=== PATIENT | female | born 1945 | race Caucasian/White ===

== ENCOUNTER 2016-10-23 09:20 | Inpatient (IN) | payer MEDICARE, MEDICAID ==
[2016-10-23] VITALS (15 sets, daily range): BP systolic 65–150; BP diastolic 31–72; PULSE 60–101; RESP 15–20; TEMP 97.7–98.1; O2SAT 89–98
[2016-10-23] MEDS ORDERED: LISI-515 PO (09:34)
[2016-10-23] MEDS ORDERED: ASPI81CH CHEW (09:34)
[2016-10-23] MEDS ORDERED: FOLI1TAB6 PO (09:34)
[2016-10-23] MEDS ORDERED: CALC0.25 PO (09:34)
[2016-10-23] MEDS ORDERED: CARV25TA PO (09:34)
[2016-10-23] MEDS ORDERED: FURO20TA PO (09:34)
[2016-10-23] MEDS ORDERED: FERR325T8 PO (09:34)
[2016-10-23] MEDS ORDERED: SPIRCAP INH (09:34)
[2016-10-23] MEDS ORDERED: LORA-373 PO (09:34)
[2016-10-23] MEDS ORDERED: AMLO5TAB2 PO (09:34)
[2016-10-23] MEDS ORDERED: ATOR40TA16 PO (09:34)
[2016-10-23] MEDS ORDERED: ISOS60TA PO (09:34)
[2016-10-23] MEDS ORDERED: VITA10002 PO (09:34)
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
[2016-10-23] MEDS: RESP: ALBUTEROL 2.5 MG/IPRATROPIUM 0.5 MG NEB (SCH) INH ×3 (09:43→22:26)
[2016-10-23] MEDS ORDERED: methylPREDNISolone SOD SUCC 125 MG/2 ML VIAL IVP ONE (09:45)
[2016-10-23] MEDS ORDERED: SODIUM CHLORIDE 0.9% FLUSH 10 ML FLUSH IVF PRN ×2 (09:45→14:15)
[2016-10-23] MEDS ORDERED: SODIUM CHLORID 0.9% 500 ML INJ 500 ML IV ONE (09:45)
[2016-10-23 09:47] LABS: HEMATOCRIT 28.4 % (35.0-46.0); MEAN CELL VOLUME 98.2 FL (80.0-100.0); MEAN CORPUSCULAR HEMOGLOBIN 31.3 PG (27.0-34.0); MEAN CORPUSCULAR HGB CONC 31.9 % (32.0-36.0); PLATELET COUNT 120 TH/MM3 (150-450); RED BLOOD COUNT 2.89 MIL/MM3 (4.00-5.30); RED CELL DISTRIBUTION WIDTH 17.4 % (11.6-17.2); WHITE BLOOD COUNT 5.8 TH/MM3 (4.0-11.0)
[2016-10-23 09:59] LABS: HEMO FLAGS AUTO DIFF
--- NOTE | 2016-10-23 10:12 | RADRPT ---
EXAM DATE/TIME: 10/23/2016 09:52 [facility] COMPARISON: No previous studies available for comparison. INDICATIONS : Short of breath. MEDICAL HISTORY : Hypertension. Chronic obstructive pulmonary disease. Arthritis. SURGICAL HISTORY : Hysterectomy. ENCOUNTER: Initial ACUITY: 2 weeks PAIN SCORE: 0/10 LOCATION: chest FINDINGS: A single view of the chest demonstrates right middle lobe airspace disease characteristic of atelecta sis. Left lung is clear. Heart is mildly enlarged. Osseous structures are intact. CONCLUSION: Right middle lobe airspace disease characteristic of atelectasis. Mild cardiomegaly. Elbert Lee MD on October 23, 2016 at 10:10 Board Certified Radiologist. This report was verified electronically.
[2016-10-23 10:21] LABS: EOSINOPHILS 1 % (0-4); NEUTROPHIL # MANUAL DIFF 3.5 TH/MM3 (1.8-7.7); PLATELET ESTIMATE SMEAR LOW (NORMAL); PLATELET MORPHOLOGY NORMAL (NORMAL); POLYS (SEG NEUTROPHILS) 61 % (16-70); SCAN/DIFF FINAL DIFF MANUAL; WBC DIFF SAMPLE 100
[2016-10-23 11:07] LABS: GLOMERULAR FILTRATION RATE 11 ML/MIN (>89)
[2016-10-23 11:08] LABS: ALKALINE PHOSPHATASE 931 U/L (45-117); AST (GOT) 193 U/L (15-37); MAGNESIUM 2.5 MG/DL (1.5-2.5)
[2016-10-23 11:09] LABS: ALT (GPT) 102 U/L (10-53); ANION GAP 13 MEQ/L (5-15); CHLORIDE 105 MEQ/L (98-107); SODIUM (NA) 140 MEQ/L (136-145); TOTAL BILIRUBIN ADULT 1.3 MG/DL (0.2-1.0)
[2016-10-23 11:10] LABS: BLOOD UREA NITROGEN 91 MG/DL (7-18)
[2016-10-23 11:13] LABS: CREATINE KINASE 47 U/L (26-192)
[2016-10-23] MEDS ORDERED: SODIUM POLYSTYRENE SULFONATE SUSP 15 GM/60 ML CUP PO ONE ×3 (11:15→23:30)
[2016-10-23] MEDS ORDERED: CALCIUM GLUCONATE 10% 1 GM/10 ML VIAL SLOW IVP ONE (11:15)
[2016-10-23] MEDS ORDERED: SODIUM CHLOR 0.9% 1000 ML INJ 1,000 ML IV ONE (11:15)
[2016-10-23] MEDS ORDERED: DEXTROSE 50% IN WATER 50 ML VIAL(D50) IV PUSH ONE ×2 (11:15→17:00)
[2016-10-23] MEDS ORDERED: SODIUM BICARBONATE 8.4% SOLN 50 MEQ/50 ML VIAL SLOW IVP ONE (11:15)
[2016-10-23] MEDS ORDERED: INSULIN HUMAN REGULAR 1,000 UNITS/10 ML VIAL IV PUSH ONE ×2 (11:30→17:00)
[2016-10-23] MEDS ORDERED: SENNOSIDES 8.6 MG TAB PO PRN (12:00)
[2016-10-23] MEDS ORDERED: BISACODYL 10 MG SUPP RECTAL PRN (12:00)
[2016-10-23] MEDS ORDERED: LACTULOSE SYRUP 20 GM/30 ML CUP PO PRN (12:00)
[2016-10-23] MEDS ORDERED: MAGNESIUM HYDROXIDE SUSP 30 ML CUP PO PRN (12:00)
[2016-10-23] MEDS: SODIUM BICARBONATE 8.4% INJ 150 MEQ in SODIUM CHLOR 0.9% 1000 ML INJ 850 ML IV SCH ×2 (12:00→16:50)
[2016-10-23] MEDS ORDERED: SODIUM CHLORIDE 0.9% FLUSH 10 ML FLUSH IV FLUSH PRN ×2 (12:00→18:15)
[2016-10-23] MEDS ORDERED: CHLORHEXIDINE GLUCONATE 2 % 1 PACK (2 CLOTHS) TOP PRN (12:00)
[2016-10-23] MEDS ORDERED: MISCELLANEOUS NURSING INFORMATION XX SCH (12:00)
[2016-10-23] MEDS ORDERED: ACETAMINOPHEN 325 MG TAB PO PRN ×2 (12:00→18:15)
[2016-10-23] MEDS ORDERED: ONDANSETRON HCL 4 MG/2 ML VIAL IV PUSH PRN (12:00)
[2016-10-23] MEDS ORDERED: RESP: ALBUTEROL 2.5 MG/IPRATROPIUM 0.5 MG NEB (PRN) INH (12:00)
[2016-10-23] MEDS ORDERED: LIDOCAINE HCL 1% PF 2 ML VIAL ONE (12:02)
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
--- NOTE | 2016-10-23 13:35 | PD.PROCEDR ---
Procedure Note Procedure Procedure: Arterial Line Placement Right radial Diagnosis: COPD exacerbation Indications: Hypoxia, multiple lab draws Consent: Obtained from patient Description of the Procedure: The right wrist was prepped and draped sterilely. 1% lidocaine was used for local anesthesia. The pulse was located and a needle was advanced into the artery. A 20 gauge, 1.34 cm catheter was advanced into the artery using a modified Seldinger technique. The catheter was sutured to the skin and a sterile dressing was applied. The catheter was connected to a pressure transducer and an arterial waveform was noted. There were no immediate complications noted. There was minimal EBL. I personally performed the procedure. Darlene Sinclair MD Oct 23, 2016 13:35
--- NOTE | 2016-10-23 14:03 | PD.RAD ---
Post Procedure Progress Note Pre Procedure Diagnosis: (1) Acute renal failure Post Procedure Diagnosis: (1) Acute renal failure Procedure Date: Oct 23, 2016 Supervising Radiologist: Yuval Villanueva JR Proceduralist/Assist: RT Thiago(R)() Anesthesia: Local Plan of Activity Patient to Unit: Nursing Unit Patient Condition: Good See PACS Report for procedural detail/treatment Central Venous Access Device Procedure 1 Right Internal Jugular Hemodialysis Catheter Non-Tunneled Placement dual lumen Taiwanese: 14 Findings: Placed RIJ Vascath. CXR pending. Flushes well. Jr. Rich,Yuval Wong MD Oct 23, 2016 14:03
--- NOTE | 2016-10-23 14:12 | RADRPT ---
EXAM DATE/TIME: 10/23/2016 14:07 [facility] COMPARISON: CHEST SINGLE AP, October 23, 2016, 9:52. INDICATIONS : Post central line placement; vascath placement. MEDICAL HISTORY : Hypertension. Chronic obstructive pulmonary disease. Arthritis SURGICAL HISTORY : Hysterectomy. ENCOUNTER: Subsequent ACUITY: 1 day PAIN SCORE: 0/10 LOCATION: Bilateral chest FINDINGS: Dialysis catheter in good position without pneumothorax. Minimal bibasilar clinical changes are note d with elevation right hemidiaphragm. The heart is minimally enlarged. The pulmonary vascularity is normal. CONCLUSION: Line in good position, negative for pneumothorax. Terence Ochoa MD FACR on October 23, 2016 at 14:10 Board Certified Radiologist. This report was verified electronically.
[2016-10-23] MEDS ORDERED: HEPARIN SODIUM - IV 2,000 UNITS/2 ML VIAL IV FLUSH PRN (14:15)
[2016-10-23] MEDS: HEPARIN SODIUM - SQ 10,000 UNITS/ML VIAL SQ SCH (14:27)
[2016-10-23] MEDS: NYSTATIN 100,000 U/GM PWD 15 GM BTL TOPICAL SCH (15:02)
--- NOTE | 2016-10-23 15:23 | RADRPT ---
EXAM DATE/TIME: 10/23/2016 00:00 [facility] COMPARISON: No previous studies available for comparison. INDICATIONS : Patient with a history of renal failure, needs dialysis MEDICAL HISTORY : COPD HTN Arthritis Renal disease SURGICAL HISTORY : Hysterectomy ENCOUNTER: Initial ACUITY: 2 days PAIN SCORE: 3/10 IMAGE SERIES: ACCESS: Right internal jugular vein DEVICE(S): 1.) 14 Japanese dual lumen 15 cm Schon catheter PROCEDURE : 1. Ultrasound guided venipuncture. 2. Central line placement. The risks, benefits and alternatives to the procedure were explained and verbal and written consent w as obtained. The site was prepped in sterile fashion. Full sterile technique was used, including ca p, mask, sterile gloves and gown and a large sterile sheet. Hand hygiene and 2% chlorhexidine prep w as utilized per protocol for cutaneous antisepsis with appropriate dry time for site. Sterile gel an d sterile probe cover were utilized for ultrasound guidance. The skin and subcutaneous tissues were infiltrated with local anesthetic solution. A suitable site a bridgette the vein was selected with ultrasound. A small incision was made. The vein was accessed under direct ultrasound visualization using the micropuncture technique. The micropuncture set was exchang ed for a 0.035 wire. The tract was dilated. The catheter was advanced into position. The catheter was fixed in place with suture and a sterile dressing was applied. The patient tolerated the procedure well and there were no complications. Chest x-ray is pending. CONCLUSION: Uncomplicated line placement as above. Yuval Villanueva Jr., MD on October 23, 2016 at 15:21 Board Certified Radiologist. This report was verified electronically.
[2016-10-23] MEDS ORDERED: CALCIUM CHLORIDE INJ 1 GM in DEXTROSE 5% IN WATER 100ML INJ 100 ML IV ONE ×2 (17:00)
[2016-10-23] MEDS ORDERED: SODIUM CHLOR 0.9% 1000 ML INJ 1,000 ML OTHER PRN ×2 (18:06)
[2016-10-23] MEDS ORDERED: SODIUM CHLOR 0.9% 1000 ML INJ 1,000 ML IV PRN (18:06)
[2016-10-23] MEDS ORDERED: cloNIDine HCL 0.1 MG TAB PO PRN (18:15)
[2016-10-23] MEDS ORDERED: NITROGLYCERIN 0.4 MG SL 25 TABS/BTL SL PRN (18:15)
[2016-10-23] MEDS ORDERED: MANNITOL 12.5 GM/50 ML VIAL IV PRN (18:15)
[2016-10-23] MEDS ORDERED: HEPARIN SODIUM - IV 10,000 UNITS/10 ML VIAL PRN (18:15)
[2016-10-23] MEDS ORDERED: ALBUMIN HUMAN 25% 25 GM/100 ML BAGP IV PRN (18:15)
[2016-10-23] MEDS ORDERED: GENTAMICIN SULFATE (DIALYSIS USE ONLY) 20 MG/2 ML VIAL IV PRN (18:15)
[2016-10-23] MEDS ORDERED: diphenhydrAMINE HCL 25 MG CAP PO PRN (18:15)
[2016-10-23] MEDS ORDERED: HEPARIN SODIUM - IV 10,000 UNITS/10 ML VIAL IVF PRN (18:15)
[2016-10-23] MEDS ORDERED: GELATIN 12 MM/7 MM FOAM TOP PRN (18:15)
[2016-10-23] MEDS ORDERED: ONDANSETRON HCL 4 MG/2 ML VIAL IV PRN (18:15)
[2016-10-23 18:21] LABS: POTASSIUM 6.3 MEQ/L (3.5-5.1)
[2016-10-23 18:27] LABS: BLOOD, URINE NEG (NEG); GLUCOSE,URINE NEG (NEG); KETONE, URINE NEG (NEG); NITRITE,URINE NEG (NEG)
[2016-10-23 18:54] LABS: MUCUS URINE MOD /lpf (OCC); URINE COLOR AMBER (YELLW/STRAW)
[2016-10-23 18:55] LABS: SQUAMOUS EPITHELIAL CELL URINE 0-5 /hpf (0-5)
[2016-10-23 18:56] LABS: COMMENT (UR) CULT NOT INDICATED; CULTURE IF INDICATED CULT NOT INDICATED
[2016-10-23] MEDS: DOCUSATE SODIUM 50 MG/SENNA 8.6 MG TAB PO SCH (21:00)
[2016-10-23] MEDS ORDERED: SODIUM BICARBONATE 8.4% INJ 50 MEQ/50 ML SYR IV ONE (23:30)
[2016-10-24] VITALS (31 sets, daily range): BP systolic 106–158; BP diastolic 46–112; PULSE 60–122; RESP 17–33; TEMP 97.9–99.2; O2SAT 86–97
[2016-10-24] MEDS: FAMOTIDINE 20 MG TAB PO SCH ×3 (00:02→20:19)
[2016-10-24] MEDS: NYSTATIN 100,000 U/GM PWD 15 GM BTL TOPICAL SCH ×3 (00:02→20:20)
[2016-10-24] MEDS: SODIUM CHLORIDE 0.9% FLUSH 10 ML FLUSH IV FLUSH SCH ×3 (00:03→20:18)
[2016-10-24] MEDS: RESP: ALBUTEROL 2.5 MG/IPRATROPIUM 0.5 MG NEB (SCH) INH ×4 (03:39→20:44)
[2016-10-24] MEDS ORDERED: LORazepam 0.5 MG TAB PO PRN (03:45)
[2016-10-24] MEDS: SODIUM BICARBONATE 8.4% INJ 150 MEQ in SODIUM CHLOR 0.9% 1000 ML INJ 850 ML IV SCH ×3 (03:51→23:48)
[2016-10-24] MEDS: CHLORHEXIDINE GLUCONATE 2 % 1 PACK (2 CLOTHS) TOP SCH (03:52)
[2016-10-24 07:50] LABS: BICARBONATE 31.1 MEQ/L (21.0-32.0)
[2016-10-24 08:27] LABS: TOTAL PROTEIN SPE 5.1 GM/DL (6.0-7.6)
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
[2016-10-24] MEDS: DOCUSATE SODIUM 50 MG/SENNA 8.6 MG TAB PO SCH ×2 (10:33→20:19)
[2016-10-24] MEDS: CYANOCOBALAMIN 1,000 MCG TAB PO SCH (10:33)
[2016-10-24] MEDS: CALCITRIOL 0.25 MCG CAP PO SCH (10:34)
[2016-10-24] MEDS: ASPIRIN 81 MG CHEW TAB CHEW SCH (10:34)
[2016-10-24] MEDS: CARVEDILOL 12.5 MG TAB PO SCH ×2 (10:35→20:19)
[2016-10-24] MEDS: FOLIC ACID 1 MG TAB PO SCH (10:35)
[2016-10-24] MEDS: amLODIPine BESYLATE 5 MG TAB PO SCH (10:35)
[2016-10-24] MEDS: FUROSEMIDE 20 MG TAB PO SCH (10:35)
[2016-10-24] MEDS: TIOTROPIUM BROMIDE 18 MCG INH INH SCH (10:36)
--- NOTE | 2016-10-24 11:23 | RADRPT ---
EXAM DATE/TIME: 10/24/2016 10:28 [facility] COMPARISON: No previous studies available for comparison. INDICATIONS : Increased BUN/creatnine. MEDICAL HISTORY : Hypertension. Arthritis. COPD. Renal failure. Hyperkalemia. Dyspnea. Morbidly obese. SURGICAL HISTORY : Hysterectomy. ENCOUNTER: Initial ACUITY: 1 day PAIN SCORE: 7/10 LOCATION: Bilateral flank MEASUREMENTS: RIGHT KIDNEY: 9.3 x 3.8 x 4.3 cm LEFT KIDNEY: 9.1 x 3.7 x 4.2 cm FINDINGS: The exam was limited due to the patient's body habitus. RIGHT KIDNEY: Renal cortex is normal in thickness and echotexture. No hydronephrosis, stone, or mass. LEFT KIDNEY: Renal cortex is normal in thickness and echotexture. No hydronephrosis, stone, or mass. BLADDER: Within normal limits given the degree of distension. There is a Cuevas catheter within the bladder. CONCLUSION: 1. Negative examination. Jimbo Ochoa MD on October 24, 2016 at 11:20 Board Certified Radiologist. This report was verified electronically.
--- NOTE | 2016-10-24 11:30 | ECHRPT ---
Indication: CONCLUSIONS Normal left ventricular size. Mild concentric left ventricular hypertrophy. The left ventricular systolic function is low normal with an estimated ejection fraction in the rang e of 50- 55%. The left atrial size is mildly dilated. The right atrial size is mildly dilated. The interatrial septum not well visualized. The aortic root and proximal ascending aorta are not well visualized. There is trace tricuspid valve regurgitation. There is estimated moderate pulmonary hypertension present (range 50-60 mmHg). The pulmonary valve is not well visualized. The inferior vena cava was not well visualized. BP: 64 / 41 HR: 60 Rhythm: Sinus MEASUREMENTS (Male / Female) Normal Values Technical Quality:Poor 2D ECHO LV Diastolic Diameter PLAX 5.2 cm 4.2 - 5.9 / 3.9 - 5.3 cm LV Systolic Diameter PLAX 4.0 cm IVS Diastolic Thickness 1.2 cm 0.6 - 1.0 / 0.6 - 0.9 cm LVPW Diastolic Thickness 1.2 cm 0.6 - 1.0 / 0.6 - 0.9 cm LV Relative Wall Thickness 0.5 LVOT Diameter 2.3 cm Aortic Root Diameter 3.1 cm LA Systolic Diameter LX 3.4 cm 3.0 - 4.0 / 2.7 - 3.8 cm M-MODE AV Cusp Separation MM 2.1 cm DOPPLER AV Peak Velocity 199.0 cm/s AV Peak Gradient 15.8 mmHg AV Mean Gradient 8.0 mmHg AV Velocity Time Integral 42.3 cm LVOT Peak Velocity 117.0 cm/s LVOT Peak Gradient 5.5 mmHg LVOT Velocity Time Integral 27.1 cm AV Area Cont Eq vti 2.7 cm AV Area Cont Eq pk 2.4 cm Mitral E Point Velocity 123.0 cm/s Mitral A Point Velocity 105.0 cm/s Mitral E to A Ratio 1.2 LV E' Lateral Velocity 10.4 cm/s Mitral E to LV E' Lateral Ratio 11.8 LV E' Septal Velocity 11.5 cm/s Mitral E to LV E' Septal Ratio 10.7 TR Peak Velocity 320.0 cm/s TR Peak Gradient 41.0 mmHg PV Peak Velocity 66.9 cm/s PV Peak Gradient 1.8 mmHg FINDINGS LEFT VENTRICLE Normal left ventricular size. Mild concentric left ventricular hypertrophy. The left ventricular systolic function is low normal with an estimated ejection fraction in the rang e of 50- 55%. Left ventricular diastolic function parameters are normal. RIGHT VENTRICLE Normal right ventricular size and systolic function. LEFT ATRIUM The left atrial size is mildly dilated. RIGHT ATRIUM The right atrial size is mildly dilated. ATRIAL SEPTUM The interatrial septum not well visualized. AORTA The aortic root and proximal ascending aorta are not well visualized. MITRAL VALVE Structurally normal mitral valve. No mitral valve stenosis or regurgitation. AORTIC VALVE No aortic valve stenosis or regurgitation. TRICUSPID VALVE Structurally normal tricuspid valve. There is trace tricuspid valve regurgitation. There is estimated moderate pulmonary hypertension present (range 50-60 mmHg). PULMONARY VALVE The pulmonary valve is not well visualized. VESSELS The inferior vena cava was not well visualized. Josh Wilkins MD, FACC, FRCP Edited by: [employer] CV Neuroscientist (Electronically Signed) Final Date:23 October 2016 14:28 Amended: 24 October 2016 11:29
[2016-10-24] MEDS: ISOSORBIDE MONONITRATE 60 MG TAB PO SCH (12:56)
[2016-10-24] MEDS: HEPARIN SODIUM - SQ 10,000 UNITS/ML VIAL SQ SCH ×2 (12:57)
--- NOTE | 2016-10-24 13:29 | PD.WCN.NOT ---
Wound Consult Description: Received consult for pre-existing gluteal/ sacral ulcers from Doctor Darlene Sinclair Communicated with: EVANS Jordan 5th floor [facility] [place] and Doctor Darlene Sinclair Recommendation: Please cleanse two R buttock stage 3 pressure injury wounds with normal saline or wound cleanser. Apply single layer Xeroform dressing just over wound beds. Apply cavilon skin prep spray to periwound and before applying bordered gauze dressing. Change dressing daily or as needed for saturation of dislodgement. Please spray skin prep to areas of diffuse partial thickness skin loss on bilateral buttocks and leave open to air Additional Information: Patient seen earlier on 5th floor [facility] [place]. Assisted patient with moderate assistance to L side for wound assessment. Two wounds noted to R buttock with mixed etiology of moisture and pressure are seen. Proximal R buttock wound presents full thickness, with oval shape and defined wound margins. Wound bed presents with ~50% pink tissue and 50% adipose tissue. Drainage from wound bed is scant and and sero-sanguinous without odor. Periwound is noted with blanchable erythema and scattered diffuse areas of moisture related partial thickness skin loss.Wound measures ~2cm x ~2cm x~0.2cm. Wound to distal R buttock presents as full thickness wound with an elliptical shape and defined uneven wound margins. Wound bed presents with ~ 70% pink tissue and ~30% adipose tissue. Wound has scant sero-sanguinous drainage that is without odor.Wound measures ~2cm x ~1cm x ~0.1cm . Periwound also presents with moisture related partial thickness skin loss.Entire bilateral buttocks presents with blanchable erythema and diffuse scattered small areasof partial thickness skin loss that is moisture related. Patient is allergic to Zinc oxide. Patient states," My skin becomes irritated and just comes off with zinc oxide."Applied skin prep to bilateral buttocks and left wounds open to air. EVANS Jordan to apply dressings when supplies are obtained. [place] airapy bed is recommended for pressure relief. Ena Allen [facility] Oct 24, 2016 13:29
[2016-10-24 14:01] LABS: ALBUMIN SPE 2.98 GM/DL (3.50-5.00); ALPHA 1 GLOBULIN 0.29 GM/DL (0.11-0.29); ALPHA 2 GLOBULIN 1.22 GM/DL (0.22-1.00); BETA GLOBULINS (SPE) 0.72 GM/DL (0.53-1.03)
--- NOTE | 2016-10-24 14:11 | EKG ---
Date Performed: 10/23/2016 Time Performed: 09:41:58 PTAGE: 71 years EKG: SINUS BRADYCARDIA WITH FIRST DEGREE AV BLOCK INTRAVENTRICULAR CONDUCTION DELAY SEPTAL MYOCA RDIAL INFARCTION ABNORMAL ECG NO PREVIOUS TRACING DOCTOR: Briana Sin Interpretating Date/Time 10/24/2016 14:07:11
--- NOTE | 2016-10-24 14:28 | MB ---
cc: GUNJAN OROZCO MD DATE OF CONSULTATION: 10/23/2016 REASON FOR CONSULTATION Elevated BUN and creatinine and hyperkalemia. HISTORY OF PRESENT ILLNESS This is a 71-year-old female with past medical history of arthritis, chronic obstructive pulmonary disease, brought to the hospital with complaint of shortness of breath. I was called to see the patient because of very high BUN and creatinine and high potassium level. The patient has known history of chronic kidney disease. She was seen by DrFransico ___ according to her about 2 years ago and then she stopped following. The labs we have in the hospital is in 2014, she had creatinine of 1.0 and now she came with a creatinine of 4. The patient admits that she has not been eating very well for the last 6 months off and on because of decreased appetite. She has no nausea or vomiting. There is no history of diarrhea. She has constipation. When she was brought to the hospital her blood pressure was low in the 60s and 70s systolic. She was given IV fluid bolus and she was given Kayexalate and methylprednisone along with calcium gluconate. The patient has improvement in the blood pressure and now the last one is 150/72. She has a Cuevas catheter and passing some urine. She denies any history of taking nonsteroidal anti-inflammatory drugs. The last time she was seen by her excelsior picker 2 years ago, she does not remember exactly how bad the kidney function was but she was never told that she will need dialysis. PAST MEDICAL HISTORY 1. Chronic obstructive pulmonary disease. 2. Osteoarthritis. 3. Hypertension. 4. Hyperlipidemia. 5. Anemia. PAST SURGICAL HISTORY Hysterectomy. REVIEW OF SYSTEMS The patient denies any history of fever. No sore throat. No headache, dizziness or blurring of vision. She has generalized weakness, feeling tired and decreased appetite, nausea and there is no vomiting. No abdominal pain. No history of diarrhea. She has constipation. Occasionally has shortness of breath. She has cough with mainly dry. There is no chest pain. SOCIAL HISTORY The patient is , lives with her . There is no history of smoking. Occasionally drinks alcoholic beverages. FAMILY HISTORY Family history is noncontributory. ALLERGIES She has no known drug allergies. MEDICATIONS Currently she is on: 1. IV fluid with sodium bicarbonate. 2. Rani-Colace one tablet b.i.d. 3. DuoNeb nebulizer. 4. Calcium gluconate one dose was given. 5. Kayexalate was given. 6. Nystatin topical. 7. Pepcid 20 mg q. 12-hours. 8. Heparin 5000 units subcu q. 12-hours. PHYSICAL EXAMINATION GENERAL: On examination the patient is awake, alert. She is not in acute distress. VITAL SIGNS: Her last blood pressure is 150/70, temperature is 98.1, oxygen saturation on 2 liters nasal cannula is 98%. HEENT: Pupils equal, reacting to light. Nonicteric sclerae. Conjunctivae pale. NECK: Supple. JVD is not elevated. LUNGS: The patient has bilateral good air entry with occasional wheezing. HEART: S1, S2. Regular rhythm. ABDOMEN: Distended, soft, lax. There is no tenderness. Bowel sounds positive. EXTREMITIES: There is no pedal edema. INVESTIGATION WBC count is 5.8, hemoglobin 9.1, platelet count 120, sodium 140, potassium 7.0. The repeat potassium now is 6.7, chloride 105, bicarb 22, BUN 91, creatinine 4.0, glucose 111, lactic acid is 0.9, calcium 7.6, AST is 193, ALT is 102. Troponin-I is less than 0.02, total protein is 5.8, albumin is 1.9, INR is 1.0. Urine cultures are pending. Urinalysis is not done. IMAGING STUDIES The patient had chest x-ray done which shows right middle lobe atelectasis, mild cardiomegaly. ASSESSMENT/PLAN 1. Acute kidney injury with possibility of some chronic kidney disease. 2. Hyperkalemia. 3. Hypotension. 4. Anemia. 5. History of COPD. Patient has high BUN and creatinine. We do not know the baseline, creatinine was 1.0 in July of 2014 and now developed acute kidney injury possibly related to ATN and hypotension. She also has low blood pressure with shock status possibly cardiogenic or dehydration. Her blood pressure improved with IV fluid. The potassium improved slightly to 6.7. The patient needs dialysis. She already has a Vas-Cath done and she will be dialyzed tonight. I will get ultrasound of the kidneys and send the urinalysis and also send serology for secondary cause for renal failure. Thank you for the consultation and I will follow the patient while she is in the hospital. MD KARLI Peraza/TLL /5:59 PM /2:05 PM
--- NOTE | 2016-10-24 15:46 | HHI.NPPN ---
Subjective History of Present Illness 71-year-old female with past medical history of arthritis, chronic obstructive pulmonary disease, brought to the hospital with complaint of shortness of breath. I was called to see the patient because of very high BUN and creatinine and high potassium level. The patient has known history of chronic kidney disease. Additional Remarks Patient is alert, feeling better, no SOB. Review of Systems General Constitutional: Fatigue Cardiovascular Cardiac: Edema, MORELAND Gastrointestinal Gastrointestinal: Abdominal Pain Objective Data Data Vital Signs Date Time Temp Pulse Resp B/P (MAP) Pulse Ox O2 Delivery O2 Flow Rate FiO2 10/24/16 10:30 78 22 122/73 (89) 95 158/68 (98) 10/24/16 10:00 97 27 139/59 (85) 93 10/24/16 09:05 93 Nasal Cannula 2.00 10/24/16 09:00 68 18 134/49 (77) 92 10/24/16 08:00 74 26 136/71 (92) 92 126/50 (75) 10/24/16 07:00 98.2 74 25 126/46 (72) 94 10/24/16 06:00 98.4 80 32 136/60 (85) 86 141/61 (87) 10/24/16 06:00 80 10/24/16 05:00 99.1 70 17 119/112 (114) 93 10/24/16 04:00 74 10/24/16 04:00 99.2 74 21 125/60 (81) 95 114/71 (85) 10/24/16 03:00 76 20 129/57 (81) 94 10/24/16 02:00 73 22 135/61 (85) 96 138/57 (84) 10/24/16 02:00 73 10/24/16 01:00 77 23 139/59 (85) 97 10/24/16 00:00 73 10/24/16 00:00 97.9 73 21 155/65 (95) 97 146/65 (92) 10/23/16 23:00 73 15 135/56 (82) 96 10/23/16 22:26 94 Nasal Cannula 4.00 10/23/16 22:00 97.7 71 20 143/63 (89) 96 140/57 (84) 10/23/16 22:00 71 10/23/16 21:00 10/23/16 19:27 73 18 135/52 (79) 91 Nasal Cannula 2.00 10/23/16 17:47 68 18 150/72 (98) 98 10/23/16 16:57 68 20 118/47 (70) 92 Nasal Cannula 2.00 10/23/16 16:18 67 20 114/50 (71) 98 Nasal Cannula 2.00 -: 10/23/16 0940 10/24/16 0524 Physical Exam General Appearance: No Acute Distress, Comfortable Eyes Eye Exam: Pupils Equal Throat Throat Exam: Oral Mucosa [place] & Moist Pulmonary Resp Exam: Breath Sounds Equal, No Distress, Rhonchi, Decreased Bases Cardiology CV Exam: Regular, Normal Sinus Rhythm Gastrointestinal/Abdomen GI Exam: Soft, Non-Tender, Bowel Sounds Present, Distended Extremeties Extremities Exam: Trace Edema Neurologic Neuro Exam: Alert, Awake, Oriented Psychiatric Psych Exam: Appropriate Responses Assessment/Plan Assessment Summary: DUY/Acute Renal Failure, CKD Stage III Problem List: (1) COPD exacerbation ICD Codes: J44.1 - Chronic obstructive pulmonary disease with (acute) exacerbation (2) Hypertension ICD Codes: I10 - Essential (primary) hypertension (3) Chronic respiratory failure ICD Codes: J96.10 - Chronic respiratory failure, unspecified whether with hypoxia or hypercapnia (4) Dyspnea ICD Codes: R06.00 - Dyspnea, unspecified Status: Acute (5) Hyperkalemia ICD Codes: E87.5 - Hyperkalemia Status: Acute (6) Acute renal failure ICD Codes: N17.9 - Acute kidney failure, unspecified Status: Acute Plan Patient has now normal K, Creatinine is improved. No need for Dialysis. Continue IVF and encourage oral intake. Has history of chronic kidney disease. Follow the urine out put and BMP. Avoid Nephrotoxins. Problem Qualifiers (1) Dyspnea: Qualified Codes: R06.00 - Dyspnea, unspecified (2) Acute renal failure: Qualified Codes: N17.9 - Acute kidney failure, unspecified Ed Navarrete MD Oct 24, 2016 15:46
[2016-10-24] MEDS: ATORVASTATIN 40 MG TAB PO SCH (20:19)
[2016-10-25] VITALS (31 sets, daily range): BP systolic 88–129; BP diastolic 46–77; PULSE 59–93; RESP 14–40; TEMP 98.2–98.7; O2SAT 83–100
[2016-10-25] MEDS: HEPARIN SODIUM - SQ 10,000 UNITS/ML VIAL SQ SCH ×2 (00:48→17:19)
[2016-10-25] MEDS: CHLORHEXIDINE GLUCONATE 2 % 1 PACK (2 CLOTHS) TOP SCH (03:56)
[2016-10-25] MEDS: RESP: ALBUTEROL 2.5 MG/IPRATROPIUM 0.5 MG NEB (SCH) INH ×4 (04:00→20:10)
[2016-10-25] MEDS: SODIUM BICARBONATE 8.4% INJ 150 MEQ in SODIUM CHLOR 0.9% 1000 ML INJ 850 ML IV SCH ×3 (06:13→19:33)
--- NOTE | 2016-10-25 06:22 | RADRPT ---
EXAM DATE/TIME: 10/25/2016 04:55 [facility] COMPARISON: CHEST SINGLE AP, October 23, 2016, 14:07. INDICATIONS : Short of breath. MEDICAL HISTORY : None. SURGICAL HISTORY : None. ENCOUNTER: Subsequent ACUITY: 1 week PAIN SCORE: 0/10 LOCATION: Bilateral chest FINDINGS: Mild basilar and perihilar airspace disease similar to October 23. Cardiomegaly. No significant eff usion or pneumothorax. CONCLUSION: 1. Stable mild basilar and perihilar air space disease since October 23. Central catheter in superi or vena cava. Pedro Shaffer MD on October 25, 2016 at 6:19 Board Certified Radiologist. This report was verified electronically.
--- NOTE | 2016-10-25 08:38 | HHI.PR ---
Subjective Remarks Follow-up COPD exacerbation, renal failure. The patient states that she feels better today. Denies dyspnea, chest pain, nausea, vomiting. Reports chronic constipation. Feels that the abdominal skin infection is improving. Objective Vitals Vital Signs Date Time Temp Pulse Resp B/P (MAP) Pulse Ox O2 Delivery O2 Flow Rate FiO2 10/25/16 06:00 62 31 113/56 (75) 96 10/25/16 06:00 62 10/25/16 05:00 93 27 119/60 (79) 93 10/25/16 04:00 62 10/25/16 04:00 98.7 62 30 121/56 (77) 92 10/25/16 03:00 63 26 112/57 (75) 100 10/25/16 02:00 61 10/25/16 02:00 61 40 121/60 (80) 92 10/25/16 01:00 71 34 129/65 (86) 94 10/25/16 00:00 98.6 67 19 116/55 (75) 94 10/25/16 00:00 67 10/24/16 23:00 72 23 121/58 (79) 93 10/24/16 22:00 60 20 106/53 (70) 93 Arterial Line 10/24/16 22:00 60 10/24/16 21:00 62 25 115/56 (75) 95 Arterial Line 10/24/16 20:43 96 Nasal Cannula 2.00 10/24/16 20:00 99.0 65 21 118/60 (79) 94 Arterial Line 10/24/16 20:00 65 10/24/16 19:00 73 20 140/66 (90) 92 10/24/16 18:00 63 19 118/57 (77) 93 10/24/16 17:30 64 20 115/56 (75) 94 10/24/16 17:00 74 30 115/57 (76) 93 10/24/16 16:30 122 24 109/57 (74) 92 10/24/16 16:07 72 23 115/91 (99) 91 10/24/16 15:30 67 17 127/62 (83) 90 10/24/16 15:00 76 32 124/75 (91) 92 10/24/16 14:30 65 19 114/60 (78) 92 10/24/16 14:00 70 27 119/59 (79) 89 10/24/16 13:00 75 33 126/69 (88) 90 120/54 (76) 10/24/16 12:00 81 26 120/51 (74) 92 10/24/16 11:00 85 29 112/51 (71) 90 10/24/16 10:30 78 22 122/73 (89) 95 158/68 (98) 10/24/16 10:00 97 27 139/59 (85) 93 10/24/16 09:05 93 Nasal Cannula 2.00 10/24/16 09:00 68 18 134/49 (77) 92 I/O 10/24/16 10/24/16 10/24/16 10/25/16 10/25/16 10/25/16 07:00 15:00 23:00 07:00 15:00 23:00 Intake Total 1000 ml 1000 ml 480 ml 720 ml Output Total 350 ml 600 ml 600 ml Balance 650 ml 1000 ml -120 ml 120 ml Intake Oral 480 ml 720 ml IV Total 1000 ml 1000 ml Output Urine Total 350 ml 600 ml 600 ml # Bowel Movements 1 1 1 Result Diagram: 10/23/16 0940 10/24/16 0524 Imaging Last Impressions Chest X-Ray 10/25/16 0600 Signed Impressions: Service Date/Time: Tuesday, October 25, 2016 04:55 - CONCLUSION: 1. Stable mild basilar and perihilar air space disease since October 23. Central catheter in superior vena cava. Pedro Shaffer MD Renal Ultrasound 10/24/16 0000 Signed Impressions: Service Date/Time: Monday, October 24, 2016 10:28 - CONCLUSION: 1. Negative examination. Jimbo Ochoa MD Catheter Placement X-Ray 10/23/16 0000 Signed Impressions: Service Date/Time: Sunday, October 23, 2016 00:00 - CONCLUSION: Uncomplicated line placement as above. Yuval Villanueva Jr., MD Objective Remarks General: Morbidly obese elderly female in no acute distress. Heart: Regular rate and rhythm. No murmur. Lungs: Mild scattered wheeze. Breathing is nonlabored. Abdomen: Soft, nontender, nondistended. Obese. Extremities: No lower extremity edema. Psych: Alert and oriented. Skin: Erythematous rash under her pannus. Procedures 10/23-Vascular catheter placement by interventional radiology(Saffell) Urinary Catheter: Yes Assessment to: Continue Cuevas insert reason: Measure Accurate Output Date of Insertion: Oct 23, 2016 Vascular Central Line Catheter: Yes Assessment to: Continue Date of Insertion: Oct 23, 2016 Location: Internal, Jugular (vascular catheter) A/P Problem List: (1) Acute renal failure ICD Code: N17.9 - Acute kidney failure, unspecified Status: Acute (2) Hyperkalemia ICD Code: E87.5 - Hyperkalemia Status: Acute (3) Dyspnea ICD Code: R06.00 - Dyspnea, unspecified Status: Acute (4) COPD exacerbation ICD Code: J44.1 - Chronic obstructive pulmonary disease with (acute) exacerbation (5) Chronic respiratory failure ICD Code: J96.10 - Chronic respiratory failure, unspecified whether with hypoxia or hypercapnia (6) Hypertension ICD Code: I10 - Essential (primary) hypertension (7) Anemia of chronic disease ICD Code: D63.8 - Anemia in other chronic diseases classified elsewhere Assessment and Plan 1. Acute renal failure: Likely secondary to hypotension, cardiogenic shock. Cuevas catheter in place to measure accurate output. Appreciate nephrology recommendations. Temporary dialysis catheter placed, but patient has not yet required dialysis. Creatinine trending down slowly. Labs are pending today. Continue IV fluids with bicarbonate. 2. COPD exacerbation, chronic respiratory failure: Patient is on 2 L of oxygen continuously at home. Oxygen increased to 4 L today secondary to hypoxia. Continue duo nebs, Spiriva. 3. Hypertension: Lisinopril on hold secondary to acute kidney injury. Continue Isordil, carvedilol, Norvasc. 4. Hyperkalemia: Improved. Should nephrology recommendations. 5. Anemia of chronic disease: Monitor H&H. 6. Fungal infection, pannus: Continue nystatin. The patient states that she feels that the infection is improving. 7. GI prophylaxis: Pepcid. 8. DVT prophylaxis: SCD's, subcutaneous heparin. Problem Qualifiers (1) Acute renal failure: Qualified Codes: N17.9 - Acute kidney failure, unspecified (2) Dyspnea: Qualified Codes: R06.00 - Dyspnea, unspecified Toney Espinosa MD Oct 25, 2016 08:38
--- NOTE | 2016-10-25 10:02 | HHI.NPPN ---
Subjective History of Present Illness 71-year-old female with past medical history of arthritis, chronic obstructive pulmonary disease, brought to the hospital with complaint of shortness of breath. I was called to see the patient because of very high BUN and creatinine and high potassium level. The patient has known history of chronic kidney disease. Additional Remarks Patient is alert, feeling better, no SOB, started eating better. Review of Systems General Constitutional: Fatigue Cardiovascular Cardiac: Edema, MORELAND Gastrointestinal Gastrointestinal: Abdominal Pain Objective Data Data Vital Signs Date Time Temp Pulse Resp B/P (MAP) Pulse Ox O2 Delivery O2 Flow Rate FiO2 10/25/16 08:57 93 Nasal Cannula 4.00 10/25/16 08:30 103/57 (72) 10/25/16 08:00 98.2 75 25 110/59 (76) 92 10/25/16 07:30 80 28 119/64 (82) 90 10/25/16 07:00 90 28 114/58 (76) 96 10/25/16 06:00 62 31 113/56 (75) 96 10/25/16 06:00 62 10/25/16 05:00 93 27 119/60 (79) 93 10/25/16 04:00 62 10/25/16 04:00 98.7 62 30 121/56 (77) 92 10/25/16 03:00 63 26 112/57 (75) 100 10/25/16 02:00 61 10/25/16 02:00 61 40 121/60 (80) 92 10/25/16 01:00 71 34 129/65 (86) 94 10/25/16 00:00 98.6 67 19 116/55 (75) 94 10/25/16 00:00 67 10/24/16 23:00 72 23 121/58 (79) 93 10/24/16 22:00 60 20 106/53 (70) 93 Arterial Line 10/24/16 22:00 60 10/24/16 21:00 62 25 115/56 (75) 95 Arterial Line 10/24/16 20:43 96 Nasal Cannula 2.00 10/24/16 20:00 99.0 65 21 118/60 (79) 94 Arterial Line 10/24/16 20:00 65 10/24/16 19:00 73 20 140/66 (90) 92 10/24/16 18:00 63 19 118/57 (77) 93 10/24/16 17:30 64 20 115/56 (75) 94 10/24/16 17:00 74 30 115/57 (76) 93 10/24/16 16:30 122 24 109/57 (74) 92 10/24/16 16:07 72 23 115/91 (99) 91 10/24/16 15:30 67 17 127/62 (83) 90 10/24/16 15:00 76 32 124/75 (91) 92 10/24/16 14:30 65 19 114/60 (78) 92 10/24/16 14:00 70 27 119/59 (79) 89 10/24/16 13:00 75 33 126/69 (88) 90 120/54 (76) 10/24/16 12:00 81 26 120/51 (74) 92 10/24/16 11:00 85 29 112/51 (71) 90 10/24/16 10:30 78 22 122/73 (89) 95 158/68 (98) -: 10/23/16 0940 10/24/16 0524 Physical Exam General Appearance: No Acute Distress, Comfortable Eyes Eye Exam: Pupils Equal Throat Throat Exam: Oral Mucosa [place] & Moist Pulmonary Resp Exam: Breath Sounds Equal, No Distress, Rhonchi, Decreased Bases Cardiology CV Exam: Regular, Normal Sinus Rhythm Gastrointestinal/Abdomen GI Exam: Soft, Non-Tender, Bowel Sounds Present, Distended Extremeties Extremities Exam: Trace Edema Neurologic Neuro Exam: Alert, Awake, Oriented Psychiatric Psych Exam: Appropriate Responses Assessment/Plan Assessment Summary: DUY/Acute Renal Failure, CKD Stage III Problem List: (1) COPD exacerbation ICD Codes: J44.1 - Chronic obstructive pulmonary disease with (acute) exacerbation (2) Hypertension ICD Codes: I10 - Essential (primary) hypertension (3) Chronic respiratory failure ICD Codes: J96.10 - Chronic respiratory failure, unspecified whether with hypoxia or hypercapnia (4) Dyspnea ICD Codes: R06.00 - Dyspnea, unspecified Status: Acute (5) Hyperkalemia ICD Codes: E87.5 - Hyperkalemia Status: Acute (6) Acute renal failure ICD Codes: N17.9 - Acute kidney failure, unspecified Status: Acute Plan Patient has Chronic kidney disease, and develop DUY. Possibly pre renal. Creatinine was better yesterday. No need for Dialysis. Continue IVF and encourage oral intake. Follow the urine out put and BMP. Avoid Nephrotoxins. BMP now. Problem Qualifiers (1) Dyspnea: Qualified Codes: R06.00 - Dyspnea, unspecified (2) Acute renal failure: Qualified Codes: N17.9 - Acute kidney failure, unspecified Ed Navarrete MD Oct 25, 2016 10:01
[2016-10-25] MEDS: TIOTROPIUM BROMIDE 18 MCG INH INH SCH (10:05)
[2016-10-25] MEDS: FOLIC ACID 1 MG TAB PO SCH (10:07)
[2016-10-25] MEDS: ASPIRIN 81 MG CHEW TAB CHEW SCH (10:07)
[2016-10-25] MEDS: FUROSEMIDE 20 MG TAB PO SCH (10:07)
[2016-10-25] MEDS: ISOSORBIDE MONONITRATE 60 MG TAB PO SCH (10:08)
[2016-10-25] MEDS: FAMOTIDINE 20 MG TAB PO SCH ×2 (10:08→21:18)
[2016-10-25] MEDS: DOCUSATE SODIUM 50 MG/SENNA 8.6 MG TAB PO SCH ×2 (10:08→21:18)
[2016-10-25] MEDS: CALCITRIOL 0.25 MCG CAP PO SCH (10:08)
[2016-10-25] MEDS: NYSTATIN 100,000 U/GM PWD 15 GM BTL TOPICAL SCH ×2 (10:10→21:18)
[2016-10-25] MEDS: CYANOCOBALAMIN 1,000 MCG TAB PO SCH (10:10)
[2016-10-25] MEDS: CARVEDILOL 12.5 MG TAB PO SCH ×2 (10:13→21:18)
[2016-10-25] MEDS: SODIUM CHLORIDE 0.9% FLUSH 10 ML FLUSH IV FLUSH SCH ×2 (10:13→21:18)
[2016-10-25] MEDS: amLODIPine BESYLATE 5 MG TAB PO SCH (12:00)
[2016-10-25 13:09] LABS: HEMATOCRIT 23.6 % (35.0-46.0); MEAN CELL VOLUME 100.8 FL (80.0-100.0); MEAN CORPUSCULAR HEMOGLOBIN 32.7 PG (27.0-34.0); MEAN CORPUSCULAR HGB CONC 32.5 % (32.0-36.0); PLATELET COUNT 86 TH/MM3 (150-450); RED BLOOD COUNT 2.34 MIL/MM3 (4.00-5.30); WHITE BLOOD COUNT 7.1 TH/MM3 (4.0-11.0)
[2016-10-25 13:31] LABS: BICARBONATE 39.7 MEQ/L (21.0-32.0); MAGNESIUM 1.9 MG/DL (1.5-2.5); POTASSIUM 3.7 MEQ/L (3.5-5.1)
[2016-10-25 13:41] LABS: REVIEW FLAG AUTO DIFF
[2016-10-25 13:51] LABS: CALCIUM-PROTEIN CORRECTED 8.3 MG/DL (8.5-10.1)
[2016-10-25 13:55] LABS: HEMOGLOBIN A1a 1.6 %; HEMOGLOBIN A1b 2.7 %; HEMOGLOBIN P3 9.2 %
[2016-10-25 14:23] LABS: ANA SCREEN POS (NEG)
[2016-10-25] MEDS: ATORVASTATIN 40 MG TAB PO SCH (21:17)
[2016-10-25 21:21] LABS: HEMATOCRIT 23.1 % (35.0-46.0)
[2016-10-25 21:22] LABS: REVIEW FLAG FINAL
[2016-10-26] VITALS (16 sets, daily range): BP systolic 101–131; BP diastolic 51–79; PULSE 58–96; RESP 14–27; TEMP 98.1–99.2; O2SAT 89–97
[2016-10-26] MEDS: HEPARIN SODIUM - SQ 10,000 UNITS/ML VIAL SQ SCH ×2 (00:36→12:53)
[2016-10-26] MEDS: SODIUM BICARBONATE 8.4% INJ 150 MEQ in SODIUM CHLOR 0.9% 1000 ML INJ 850 ML IV SCH ×3 (02:13→22:13)
[2016-10-26] MEDS: RESP: ALBUTEROL 2.5 MG/IPRATROPIUM 0.5 MG NEB (SCH) INH ×5 (03:32→20:41)
[2016-10-26] MEDS: CHLORHEXIDINE GLUCONATE 2 % 1 PACK (2 CLOTHS) TOP SCH (04:00)
[2016-10-26 06:24] LABS: BICARBONATE 41.6 MEQ/L (21.0-32.0); POTASSIUM 3.6 MEQ/L (3.5-5.1)
[2016-10-26] MEDS ORDERED: FUROSEMIDE 40 MG/4 ML VIAL IV PUSH ONE (06:30)
[2016-10-26 06:53] LABS: AUTOMATED NEUTROPHIL # 4.1 TH/MM3 (1.8-7.7); BASOPHIL % 0.7 % (0.0-2.0); EOSINOPHIL # 0.1 TH/MM3 (0-0.4); EOSINOPHIL % 2.1 % (0.0-4.0); HEMATOCRIT 24.2 % (35.0-46.0); LYMPH % 28.7 % (9.0-44.0); LYMPHOCYTE # 1.9 TH/MM3 (1.0-4.8); MEAN CELL VOLUME 102.8 FL (80.0-100.0); MEAN CORPUSCULAR HEMOGLOBIN 31.8 PG (27.0-34.0); MONO % 7.3 % (0.0-8.0); NEUT % 61.2 % (16.0-70.0); PLATELET COUNT 75 TH/MM3 (150-450); RED BLOOD COUNT 2.35 MIL/MM3 (4.00-5.30); WHITE BLOOD COUNT 6.6 TH/MM3 (4.0-11.0)
[2016-10-26 06:55] LABS: CALCIUM-PROTEIN CORRECTED 8.3 MG/DL (8.5-10.1)
--- NOTE | 2016-10-26 06:57 | RADRPT ---
EXAM DATE/TIME: 10/26/2016 06:41 [place] COMPARISON: CHEST SINGLE AP, October 25, 2016, 4:55. INDICATIONS : Pulmonary edema. MEDICAL HISTORY : None. SURGICAL HISTORY : None. ENCOUNTER: Subsequent ACUITY: 3 days PAIN SCORE: Non-responsive. LOCATION: Bilateral chest FINDINGS: A single view of the chest demonstrates the lungs to be hypoinflated with mild fullness in the right perihilar distribution. Minimal atelectatic changes in the medial right base. Heart size is prominent but well compensated. Right IJ dialysis type catheter with the tip projecting over the central venou s system. Osseous structures are intact. CONCLUSION: 1. Stable fullness in the right hilar distribution there is a prominent central pulmonary artery. 2. Minimal atelectatic changes medially in the right base. 3. Compensated cardiomegaly. Lungs are hypoinflated. Bonifacio Melchor MD on October 26, 2016 at 6:54 Board Certified Radiologist. This report was verified electronically.
[2016-10-26 07:00] LABS: HEMO FLAGS AUTO DIFF
[2016-10-26] MEDS: NYSTATIN 100,000 U/GM PWD 15 GM BTL TOPICAL SCH ×2 (08:35→21:17)
[2016-10-26] MEDS: TIOTROPIUM BROMIDE 18 MCG INH INH SCH (08:35)
[2016-10-26] MEDS: ASPIRIN 81 MG CHEW TAB CHEW SCH (08:35)
[2016-10-26] MEDS: FUROSEMIDE 20 MG TAB PO SCH (08:35)
[2016-10-26] MEDS: FOLIC ACID 1 MG TAB PO SCH (08:35)
[2016-10-26] MEDS: ISOSORBIDE MONONITRATE 60 MG TAB PO SCH (08:35)
[2016-10-26] MEDS: CARVEDILOL 12.5 MG TAB PO SCH ×2 (08:35→21:17)
[2016-10-26] MEDS: FAMOTIDINE 20 MG TAB PO SCH ×2 (08:36→21:17)
[2016-10-26] MEDS: CYANOCOBALAMIN 1,000 MCG TAB PO SCH (08:36)
[2016-10-26] MEDS: CALCITRIOL 0.25 MCG CAP PO SCH (08:36)
[2016-10-26] MEDS: DOCUSATE SODIUM 50 MG/SENNA 8.6 MG TAB PO SCH ×2 (08:37→21:17)
[2016-10-26] MEDS: SODIUM CHLORIDE 0.9% FLUSH 10 ML FLUSH IV FLUSH SCH ×2 (08:37→21:17)
[2016-10-26 09:33] LABS: BANDS 2 % (0-6); CORRECTED NUCLEATED RBC 1 /100 WBC (0-0); EOSINOPHILS 1 % (0-4); METAMYELOCYTES 1 % (0-1); NEUTROPHIL # MANUAL DIFF 5.2 TH/MM3 (1.8-7.7); PLATELET ESTIMATE SMEAR LOW (NORMAL); PLATELET MORPHOLOGY NORMAL (NORMAL); POLYS (SEG NEUTROPHILS) 76 % (16-70); SCAN/DIFF FINAL DIFF MANUAL; TARGET CELLS 1+ (NORMAL); WBC DIFF SAMPLE 100
--- NOTE | 2016-10-26 11:22 | HHI.PR ---
Subjective Remarks Follow up renal failure, COPD. The patient has no complaints at this time. Denies chest pain, dyspnea, nausea, vomiting. Had cough overnight. Objective Vitals Vital Signs Date Time Temp Pulse Resp B/P (MAP) Pulse Ox O2 Delivery O2 Flow Rate FiO2 10/26/16 09:51 94 Nasal Cannula 4.00 10/26/16 06:00 74 22 131/66 (87) 92 10/26/16 06:00 74 10/26/16 04:00 98.6 63 20 110/55 (73) 95 10/26/16 04:00 63 10/26/16 03:00 96 27 101/54 (70) 89 10/26/16 02:00 58 14 107/51 (69) 94 10/26/16 02:00 58 10/26/16 01:00 61 14 111/55 (73) 96 10/26/16 00:00 59 10/26/16 00:00 98.1 59 16 104/53 (70) 97 10/25/16 23:00 65 21 106/56 (73) 89 10/25/16 22:00 74 10/25/16 22:00 74 33 102/63 (76) 84 10/25/16 21:00 66 21 110/54 (72) 88 10/25/16 20:10 98 Nasal Cannula 3.00 10/25/16 20:00 63 10/25/16 20:00 98.6 63 22 116/54 (74) 94 10/25/16 19:00 61 22 100/47 (64) 98 10/25/16 18:00 60 19 100/49 (66) 95 10/25/16 17:00 70 25 100/55 (70) 90 10/25/16 16:00 98.4 60 18 99/51 (67) 98 10/25/16 15:00 59 16 101/51 (68) 98 10/25/16 14:00 60 14 88/46 (60) 96 10/25/16 13:01 87 25 98/52 (67) 93 10/25/16 13:00 72 29 92 10/25/16 12:00 65 23 116/61 (79) 95 I/O 10/25/16 10/25/16 10/25/16 10/26/16 10/26/16 10/26/16 07:00 15:00 23:00 07:00 15:00 23:00 Intake Total 720 ml 720 ml 1920 ml Output Total 600 ml 600 ml 1400 ml Balance 120 ml 120 ml 520 ml Intake Oral 720 ml 720 ml 1920 ml Output Urine Total 600 ml 600 ml 1400 ml # Bowel Movements 1 3 Result Diagram: 10/26/16 0515 10/26/16 0515 Imaging Last Impressions Chest X-Ray 10/26/16 0000 Signed Impressions: Service Date/Time: October 06:41 - CONCLUSION: 1. Stable fullness in the right hilar distribution there is a prominent central pulmonary artery. 2. Minimal atelectatic changes medially in the right base. 3. Compensated cardiomegaly. Lungs are hypoinflated. Bonifacio Melchor MD Renal Ultrasound 10/24/16 0000 Signed Impressions: Service Date/Time: Monday, October 24, 2016 10:28 - CONCLUSION: 1. Negative examination. Jimbo Ochoa MD Catheter Placement X-Ray 10/23/16 0000 Signed Impressions: Service Date/Time: Sunday, October 23, 2016 00:00 - CONCLUSION: Uncomplicated line placement as above. Yuval Villanueva Jr., MD Objective Remarks General: Morbidly obese elderly female in no acute distress. Heart: Regular rate and rhythm. No murmur. Lungs: Mild scattered wheeze. Breathing is nonlabored. Abdomen: Soft, nontender, nondistended. Obese. Extremities: No lower extremity edema. Psych: Alert and oriented. Procedures 10/23-Vascular catheter placement by interventional radiology([place]) Urinary Catheter: Yes Assessment to: Continue Cuevas insert reason: Measure Accurate Output Date of Insertion: Oct 23, 2016 Vascular Central Line Catheter: Yes Assessment to: Continue Date of Insertion: Oct 23, 2016 Location: Internal, Jugular (vascular catheter) A/P Problem List: (1) Acute renal failure ICD Code: N17.9 - Acute kidney failure, unspecified Status: Acute (2) Hyperkalemia ICD Code: E87.5 - Hyperkalemia Status: Acute (3) Dyspnea ICD Code: R06.00 - Dyspnea, unspecified Status: Acute (4) COPD exacerbation ICD Code: J44.1 - Chronic obstructive pulmonary disease with (acute) exacerbation (5) Chronic respiratory failure ICD Code: J96.10 - Chronic respiratory failure, unspecified whether with hypoxia or hypercapnia (6) Hypertension ICD Code: I10 - Essential (primary) hypertension (7) Anemia of chronic disease ICD Code: D63.8 - Anemia in other chronic diseases classified elsewhere Assessment and Plan 1. Acute renal failure: Likely secondary to hypotension, cardiogenic shock. Cuevas catheter in place to measure accurate output. Appreciate nephrology recommendations. Temporary dialysis catheter placed, but patient has not yet required dialysis. Creatinine improving. Stop IV fluids. 2. COPD exacerbation, chronic respiratory failure: Patient is on 2 L of oxygen continuously at home. Requiring 4L now. Continue duo nebs, Spiriva. 3. Hypertension: Lisinopril on hold secondary to acute kidney injury. Continue Isordil, carvedilol, Norvasc. 4. Hyperkalemia: Improved. Should nephrology recommendations. 5. Anemia of chronic disease: Monitor H&H. 6. Fungal infection, pannus: Continue nystatin. 7. GI prophylaxis: Pepcid. 8. DVT prophylaxis: SCDs, subcutaneous heparin. Discharge Planning Transfer to med/surg floor when a bed is available. Problem Qualifiers (1) Acute renal failure: Qualified Codes: N17.9 - Acute kidney failure, unspecified (2) Dyspnea: Qualified Codes: R06.00 - Dyspnea, unspecified Toney Espinosa MD Oct 26, 2016 11:21
[2016-10-26] MEDS: amLODIPine BESYLATE 5 MG TAB PO SCH (12:00)
--- NOTE | 2016-10-26 16:31 | HHI.NPPN ---
Subjective History of Present Illness 71-year-old female with past medical history of arthritis, chronic obstructive pulmonary disease, brought to the hospital with complaint of shortness of breath. I was called to see the patient because of very high BUN and creatinine and high potassium level. The patient has known history of chronic kidney disease. Additional Remarks Patient is alert, feeling better, no SOB, clinically same. Review of Systems General Constitutional: Fatigue Cardiovascular Cardiac: Edema, [place] Gastrointestinal Gastrointestinal: Abdominal Pain Objective Data Data Vital Signs Date Time Temp Pulse Resp B/P (MAP) Pulse Ox O2 Delivery O2 Flow Rate FiO2 10/26/16 16:00 70 10/26/16 16:00 98.4 75 22 104/60 (75) 95 10/26/16 14:00 68 10/26/16 12:00 82 10/26/16 12:00 98.5 82 21 119/56 (77) 94 10/26/16 10:00 82 10/26/16 09:51 94 Nasal Cannula 4.00 10/26/16 08:00 98.3 68 24 115/67 (83) 94 10/26/16 08:00 68 10/26/16 06:00 74 22 131/66 (87) 92 10/26/16 06:00 74 10/26/16 04:00 98.6 63 20 110/55 (73) 95 10/26/16 04:00 63 10/26/16 03:00 96 27 101/54 (70) 89 10/26/16 02:00 58 14 107/51 (69) 94 10/26/16 02:00 58 10/26/16 01:00 61 14 111/55 (73) 96 10/26/16 00:00 59 10/26/16 00:00 98.1 59 16 104/53 (70) 97 10/25/16 23:00 65 21 106/56 (73) 89 10/25/16 22:00 74 10/25/16 22:00 74 33 102/63 (76) 84 10/25/16 21:00 66 21 110/54 (72) 88 10/25/16 20:10 98 Nasal Cannula 3.00 10/25/16 20:00 63 10/25/16 20:00 98.6 63 22 116/54 (74) 94 10/25/16 19:00 61 22 100/47 (64) 98 10/25/16 18:00 60 19 100/49 (66) 95 10/25/16 17:00 70 25 100/55 (70) 90 -: 10/26/16 0515 10/26/16 0515 Physical Exam General Appearance: No Acute Distress, Comfortable Eyes Eye Exam: Pupils Equal Throat Throat Exam: Oral Mucosa [place] & Moist Pulmonary Resp Exam: Breath Sounds Equal, No Distress, Rhonchi, Decreased Bases Cardiology CV Exam: Regular, Normal Sinus Rhythm Gastrointestinal/Abdomen GI Exam: Soft, Non-Tender, Bowel Sounds Present, Distended Extremeties Extremities Exam: Trace Edema Neurologic Neuro Exam: Alert, Awake, Oriented Psychiatric Psych Exam: Appropriate Responses Assessment/Plan Assessment Summary: DUY/Acute Renal Failure, CKD Stage III Problem List: (1) COPD exacerbation ICD Codes: J44.1 - Chronic obstructive pulmonary disease with (acute) exacerbation (2) Hypertension ICD Codes: I10 - Essential (primary) hypertension (3) Chronic respiratory failure ICD Codes: J96.10 - Chronic respiratory failure, unspecified whether with hypoxia or hypercapnia (4) Dyspnea ICD Codes: R06.00 - Dyspnea, unspecified Status: Acute (5) Hyperkalemia ICD Codes: E87.5 - Hyperkalemia Status: Acute (6) Acute renal failure ICD Codes: N17.9 - Acute kidney failure, unspecified Status: Acute Plan Patient has Chronic kidney disease, and develop DUY. Possibly pre renal. Creatinine was better yesterday. No need for Dialysis. Continue IVF and encourage oral intake. Follow the urine out put and BMP. Avoid Nephrotoxins. Creatinine improving, K is normalized. To D/C Vascath if continue to improve. Problem Qualifiers (1) Dyspnea: Qualified Codes: R06.00 - Dyspnea, unspecified (2) Acute renal failure: Qualified Codes: N17.9 - Acute kidney failure, unspecified Ed Navarrete MD Oct 26, 2016 16:31
[2016-10-26] MEDS ORDERED: guaiFENesin/CODEINE SYRUP 200 MG/20 MG/10 ML CUP PO ONE (20:15)
[2016-10-26] MEDS: ATORVASTATIN 40 MG TAB PO SCH (21:17)
[2016-10-27] VITALS (11 sets, daily range): BP systolic 118–135; BP diastolic 55–63; PULSE 61–77; RESP 14–22; TEMP 98.4–98.9; O2SAT 90–96
[2016-10-27] MEDS: RESP: ALBUTEROL 2.5 MG/IPRATROPIUM 0.5 MG NEB (SCH) INH ×3 (03:35→15:56)
[2016-10-27] MEDS: CHLORHEXIDINE GLUCONATE 2 % 1 PACK (2 CLOTHS) TOP SCH (04:00)
[2016-10-27] MEDS: SODIUM BICARBONATE 8.4% INJ 150 MEQ in SODIUM CHLOR 0.9% 1000 ML INJ 850 ML IV SCH (06:34)
[2016-10-27] MEDS ORDERED: ARTIFICIAL TEARS OPTH SOLN 15 ML BTL EACH EYE PRN (08:30)
[2016-10-27] MEDS: ASPIRIN 81 MG CHEW TAB CHEW SCH (08:53)
[2016-10-27] MEDS: CARVEDILOL 12.5 MG TAB PO SCH ×2 (08:53→21:38)
[2016-10-27] MEDS: FAMOTIDINE 20 MG TAB PO SCH ×2 (08:53→21:38)
[2016-10-27] MEDS: CYANOCOBALAMIN 1,000 MCG TAB PO SCH (08:53)
[2016-10-27] MEDS: CALCITRIOL 0.25 MCG CAP PO SCH (08:53)
[2016-10-27] MEDS: FUROSEMIDE 20 MG TAB PO SCH (08:53)
[2016-10-27] MEDS: ISOSORBIDE MONONITRATE 60 MG TAB PO SCH (08:53)
[2016-10-27] MEDS: DOCUSATE SODIUM 50 MG/SENNA 8.6 MG TAB PO SCH ×2 (08:54→21:00)
[2016-10-27] MEDS: NYSTATIN 100,000 U/GM PWD 15 GM BTL TOPICAL SCH ×2 (08:54→21:00)
[2016-10-27] MEDS: SODIUM CHLORIDE 0.9% FLUSH 10 ML FLUSH IV FLUSH SCH ×2 (08:54→21:39)
[2016-10-27] MEDS: TIOTROPIUM BROMIDE 18 MCG INH INH SCH (08:54)
[2016-10-27] MEDS: FOLIC ACID 1 MG TAB PO SCH (08:54)
[2016-10-27] MEDS: guaiFENesin E.R. 600 MG TAB PO SCH ×2 (09:56→21:38)
--- NOTE | 2016-10-27 11:10 | HHI.PR ---
Subjective Remarks Follow up renal failure, anemia. Patient states that she feels better today. No pain. Breathing is better. No nausea/vomiting. Objective Vitals Vital Signs Date Time Temp Pulse Resp B/P (MAP) Pulse Ox O2 Delivery O2 Flow Rate FiO2 10/27/16 10:00 73 10/27/16 08:00 98.9 69 20 130/60 (83) 93 10/27/16 08:00 69 10/27/16 07:37 92 Simple Mask 6.00 10/27/16 06:00 69 10/27/16 04:00 98.5 61 14 135/63 (87) 92 10/27/16 04:00 61 10/27/16 02:00 70 10/27/16 00:00 77 10/27/16 00:00 98.5 77 18 133/63 (86) 90 10/26/16 22:00 65 10/26/16 20:41 94 Nasal Cannula 4.00 10/26/16 20:00 99.2 71 23 131/79 (96) 90 10/26/16 20:00 71 10/26/16 18:00 65 10/26/16 16:00 70 10/26/16 16:00 98.4 75 22 104/60 (75) 95 10/26/16 14:00 68 10/26/16 12:00 82 10/26/16 12:00 98.5 82 21 119/56 (77) 94 I/O 10/26/16 10/26/16 10/26/16 10/27/16 10/27/16 10/27/16 07:00 15:00 23:00 07:00 15:00 23:00 Intake Total 1920 ml 1440 ml 960 ml Output Total 1400 ml 2400 ml 1125 ml Balance 520 ml -960 ml -165 ml Intake Oral 1920 ml 1440 ml 960 ml Output Urine Total 1400 ml 2400 ml 1125 ml # Bowel Movements 1 0 Result Diagram: 10/26/16 0515 10/26/16 0515 Imaging Last Impressions Chest X-Ray 10/26/16 0000 Signed Impressions: Service Date/Time: October 06:41 - CONCLUSION: 1. Stable fullness in the right hilar distribution there is a prominent central pulmonary artery. 2. Minimal atelectatic changes medially in the right base. 3. Compensated cardiomegaly. Lungs are hypoinflated. Bonifacio Melchor MD Renal Ultrasound 10/24/16 0000 Signed Impressions: Service Date/Time: Monday, October 24, 2016 10:28 - CONCLUSION: 1. Negative examination. Jimbo Ochoa MD Catheter Placement X-Ray 10/23/16 0000 Signed Impressions: Service Date/Time: Sunday, October 23, 2016 00:00 - CONCLUSION: Uncomplicated line placement as above. Yuval Villanueva Jr., MD Objective Remarks General: Morbidly obese elderly female in no acute distress. Heart: Regular rate and rhythm. No murmur. Lungs: Mild scattered wheeze. Breathing is nonlabored. Abdomen: Soft, nontender, nondistended. Obese. Extremities: No lower extremity edema. Psych: Alert and oriented. Procedures 10/23-Vascular catheter placement by interventional radiology([place]) Urinary Catheter: Yes Assessment to: Continue Cuevas insert reason: Measure Accurate Output Date of Insertion: Oct 23, 2016 Vascular Central Line Catheter: Yes Assessment to: Continue Date of Insertion: Oct 23, 2016 Location: Internal, Jugular (vascular catheter) A/P Problem List: (1) Acute renal failure ICD Code: N17.9 - Acute kidney failure, unspecified Status: Acute (2) Hyperkalemia ICD Code: E87.5 - Hyperkalemia Status: Acute (3) Dyspnea ICD Code: R06.00 - Dyspnea, unspecified Status: Acute (4) COPD exacerbation ICD Code: J44.1 - Chronic obstructive pulmonary disease with (acute) exacerbation (5) Chronic respiratory failure ICD Code: J96.10 - Chronic respiratory failure, unspecified whether with hypoxia or hypercapnia (6) Hypertension ICD Code: I10 - Essential (primary) hypertension (7) Anemia of chronic disease ICD Code: D63.8 - Anemia in other chronic diseases classified elsewhere Assessment and Plan 1. Acute renal failure: Likely secondary to hypotension, cardiogenic shock. Cuevas catheter in place to measure accurate output. Appreciate nephrology recommendations. Temporary dialysis catheter placed, but patient has not yet required dialysis. Creatinine improving. Stop IV fluids. Labs are pending this morning. 2. COPD exacerbation, chronic respiratory failure: Patient is on 2 L of oxygen continuously at home. Continue duo nebs, Spiriva. 3. Hypertension: Lisinopril on hold secondary to acute kidney injury. Continue Isordil, carvedilol, Norvasc. 4. Hyperkalemia: Improved. Appreciate nephrology recommendations. 5. Anemia of chronic disease: Monitor H&H. Labs are pending. 6. Fungal infection, pannus: Continue nystatin. 7. GI prophylaxis: Pepcid. 8. DVT prophylaxis: SCDs, subcutaneous heparin. Discharge Planning Transfer to med/surg floor when a bed is available. Problem Qualifiers (1) Acute renal failure: Qualified Codes: N17.9 - Acute kidney failure, unspecified (2) Dyspnea: Qualified Codes: R06.00 - Dyspnea, unspecified Toney Espinosa MD Oct 27, 2016 11:10
[2016-10-27] MEDS: amLODIPine BESYLATE 5 MG TAB PO SCH (11:53)
[2016-10-27] MEDS: HEPARIN SODIUM - SQ 10,000 UNITS/ML VIAL SQ SCH ×2 (11:54)
--- NOTE | 2016-10-27 12:52 | HHI.NPPN ---
Subjective History of Present Illness 71-year-old female with past medical history of arthritis, chronic obstructive pulmonary disease, brought to the hospital with complaint of shortness of breath. I was called to see the patient because of very high BUN and creatinine and high potassium level. The patient has known history of chronic kidney disease. Additional Remarks Patient is alert, feeling better, no SOB, started eating better. Review of Systems General Constitutional: Fatigue Cardiovascular Cardiac: Edema, [place] Gastrointestinal Gastrointestinal: Abdominal Pain Objective Data Data Vital Signs Date Time Temp Pulse Resp B/P (MAP) Pulse Ox O2 Delivery O2 Flow Rate FiO2 10/27/16 12:00 67 10/27/16 12:00 98.8 67 22 118/55 (76) 95 10/27/16 10:00 73 10/27/16 08:00 98.9 69 20 130/60 (83) 93 10/27/16 08:00 69 10/27/16 07:37 92 Simple Mask 6.00 10/27/16 06:00 69 10/27/16 04:00 98.5 61 14 135/63 (87) 92 10/27/16 04:00 61 10/27/16 02:00 70 10/27/16 00:00 77 10/27/16 00:00 98.5 77 18 133/63 (86) 90 10/26/16 22:00 65 10/26/16 20:41 94 Nasal Cannula 4.00 10/26/16 20:00 99.2 71 23 131/79 (96) 90 10/26/16 20:00 71 10/26/16 18:00 65 10/26/16 16:00 70 10/26/16 16:00 98.4 75 22 104/60 (75) 95 10/26/16 14:00 68 -: 10/26/16 0515 10/26/16 0515 Physical Exam General Appearance: No Acute Distress, Comfortable Eyes Eye Exam: Pupils Equal Throat Throat Exam: Oral Mucosa [place] & Moist Pulmonary Resp Exam: Breath Sounds Equal, No Distress, Rhonchi, Decreased Bases Cardiology CV Exam: Regular, Normal Sinus Rhythm Gastrointestinal/Abdomen GI Exam: Soft, Non-Tender, Bowel Sounds Present, Distended Extremeties Extremities Exam: Trace Edema Neurologic Neuro Exam: Alert, Awake, Oriented Psychiatric Psych Exam: Appropriate Responses Assessment/Plan Assessment Summary: DUY/Acute Renal Failure, CKD Stage III Problem List: (1) COPD exacerbation ICD Codes: J44.1 - Chronic obstructive pulmonary disease with (acute) exacerbation (2) Hypertension ICD Codes: I10 - Essential (primary) hypertension (3) Chronic respiratory failure ICD Codes: J96.10 - Chronic respiratory failure, unspecified whether with hypoxia or hypercapnia (4) Dyspnea ICD Codes: R06.00 - Dyspnea, unspecified Status: Acute (5) Hyperkalemia ICD Codes: E87.5 - Hyperkalemia Status: Acute (6) Acute renal failure ICD Codes: N17.9 - Acute kidney failure, unspecified Status: Acute Plan Patient has Chronic kidney disease, and develop DUY. Possibly pre renal. Creatinine was better remove Vascath No need for Dialysis. Continue to encourage oral intake. Follow BMP periodically Nephrology to Follow PRN bases Problem Qualifiers (1) Dyspnea: Qualified Codes: R06.00 - Dyspnea, unspecified (2) Acute renal failure: Qualified Codes: N17.9 - Acute kidney failure, unspecified Melissa Gamboa MD Oct 27, 2016 12:52
[2016-10-27 13:40] LABS: AUTOMATED NEUTROPHIL # 6.6 TH/MM3 (1.8-7.7); BASOPHIL # 0.1 TH/MM3 (0-0.2); BASOPHIL % 0.9 % (0.0-2.0); EOSINOPHIL # 0.1 TH/MM3 (0-0.4); EOSINOPHIL % 1.5 % (0.0-4.0); LYMPHOCYTE # 1.8 TH/MM3 (1.0-4.8); MEAN CELL VOLUME 101.1 FL (80.0-100.0); MEAN CORPUSCULAR HEMOGLOBIN 31.9 PG (27.0-34.0); MEAN CORPUSCULAR HGB CONC 31.6 % (32.0-36.0); MONO % 6.4 % (0.0-8.0); NEUT % 71.2 % (16.0-70.0); PLATELET COUNT 70 TH/MM3 (150-450); RED BLOOD COUNT 2.15 MIL/MM3 (4.00-5.30); RED CELL DISTRIBUTION WIDTH 17.9 % (11.6-17.2); WHITE BLOOD COUNT 9.2 TH/MM3 (4.0-11.0)
[2016-10-27 13:49] LABS: HEMO FLAGS AUTO DIFF
[2016-10-27 13:52] LABS: HEMATOCRIT 21.8 % (35.0-46.0)
[2016-10-27 13:57] LABS: BICARBONATE 42.7 MEQ/L (21.0-32.0); POTASSIUM 3.4 MEQ/L (3.5-5.1)
[2016-10-27] MEDS ORDERED: SODIUM CHLOR 0.9% 250 ML INJ 250 ML IV ONE (14:00)
[2016-10-27 14:21] LABS: CALCIUM-PROTEIN CORRECTED 8.7 MG/DL (8.5-10.1)
[2016-10-27 14:51] LABS: ANA TITER QUANT 1:40 (NEG)
[2016-10-27 15:50] LABS: MYELOPEROXIDASE LESS THAN 1.0 AI (<1.0); PROTEINASE-3 LESS THAN 1.0 AI (<1.0)
[2016-10-27 19:05] LABS: STOMATOCYTES 2+ (NORMAL)
[2016-10-27 19:06] LABS: PLATELET ESTIMATE SMEAR LOW (NORMAL); PLATELET MORPHOLOGY NORMAL (NORMAL); SCAN/DIFF AUTO DIFF CONFIRMED
[2016-10-27] MEDS: ATORVASTATIN 40 MG TAB PO SCH (21:38)
[2016-10-28] VITALS: BP 132/58; PULSE 64; RESP 19; TEMP 98.3; O2SAT 94
[2016-10-28] MEDS: HEPARIN SODIUM - SQ 10,000 UNITS/ML VIAL SQ SCH ×2 (01:04→12:00)
[2016-10-28 04:00] VITALS: BP 127/60; PULSE 90
[2016-10-28] MEDS: CHLORHEXIDINE GLUCONATE 2 % 1 PACK (2 CLOTHS) TOP SCH (04:00)
[2016-10-28 04:44] VITALS: PULSE 65
[2016-10-28] MEDS: ISOSORBIDE MONONITRATE 60 MG TAB PO SCH (05:22)
[2016-10-28 06:01] LABS: AUTOMATED NEUTROPHIL # 5.8 TH/MM3 (1.8-7.7); BASOPHIL # 0.1 TH/MM3 (0-0.2); BASOPHIL % 0.7 % (0.0-2.0); EOSINOPHIL # 0.2 TH/MM3 (0-0.4); EOSINOPHIL % 1.9 % (0.0-4.0); HEMATOCRIT 25.9 % (35.0-46.0); LYMPH % 20.5 % (9.0-44.0); LYMPHOCYTE # 1.7 TH/MM3 (1.0-4.8); MEAN CELL VOLUME 100.5 FL (80.0-100.0); MEAN CORPUSCULAR HEMOGLOBIN 32.2 PG (27.0-34.0); MEAN CORPUSCULAR HGB CONC 32.1 % (32.0-36.0); MONO % 8.1 % (0.0-8.0); NEUT % 68.8 % (16.0-70.0); PLATELET COUNT 72 TH/MM3 (150-450); RED BLOOD COUNT 2.57 MIL/MM3 (4.00-5.30); RED CELL DISTRIBUTION WIDTH 17.4 % (11.6-17.2); WHITE BLOOD COUNT 8.5 TH/MM3 (4.0-11.0)
[2016-10-28 06:07] LABS: HEMO FLAGS AUTO DIFF
[2016-10-28 06:28] LABS: BICARBONATE 41.1 MEQ/L (21.0-32.0); POTASSIUM 3.5 MEQ/L (3.5-5.1)
[2016-10-28 07:25] LABS: PLATELET ESTIMATE SMEAR LOW (NORMAL); PLATELET MORPHOLOGY NORMAL (NORMAL); SCAN/DIFF AUTO DIFF CONFIRMED
[2016-10-28 07:43] LABS: CALCIUM-PROTEIN CORRECTED 8.6 MG/DL (8.5-10.1)
[2016-10-28 08:00] VITALS: BP 126/60; PULSE 65; RESP 18; TEMP 98.4; O2SAT 94
[2016-10-28] MEDS: TIOTROPIUM BROMIDE 18 MCG INH INH SCH (08:10)
[2016-10-28] MEDS: CARVEDILOL 12.5 MG TAB PO SCH (08:10)
[2016-10-28] MEDS: FUROSEMIDE 20 MG TAB PO SCH (08:11)
[2016-10-28] MEDS: CYANOCOBALAMIN 1,000 MCG TAB PO SCH (08:11)
[2016-10-28] MEDS: SODIUM CHLORIDE 0.9% FLUSH 10 ML FLUSH IV FLUSH SCH (08:11)
[2016-10-28] MEDS: FOLIC ACID 1 MG TAB PO SCH (08:11)
[2016-10-28] MEDS: guaiFENesin E.R. 600 MG TAB PO SCH (08:11)
[2016-10-28] MEDS: DOCUSATE SODIUM 50 MG/SENNA 8.6 MG TAB PO SCH (08:11)
[2016-10-28] MEDS: FAMOTIDINE 20 MG TAB PO SCH (08:11)
[2016-10-28] MEDS: CALCITRIOL 0.25 MCG CAP PO SCH (08:11)
[2016-10-28] MEDS: ASPIRIN 81 MG CHEW TAB CHEW SCH (08:11)
[2016-10-28] MEDS: NYSTATIN 100,000 U/GM PWD 15 GM BTL TOPICAL SCH (08:12)
[2016-10-28] MEDS: RESP: ALBUTEROL 2.5 MG/IPRATROPIUM 0.5 MG NEB (SCH) INH (09:16)
[2016-10-28 09:19] VITALS: O2SAT 93
--- NOTE | 2016-10-28 10:36 | HHI.PR ---
Subjective Remarks In bed, says she feels improved. Says her bed at home is different and is allowing her to be more independent. Has no pain. No sob, n/v/d/c. Feels comfortable to go home. Objective Vitals Vital Signs Date Time Temp Pulse Resp B/P (MAP) Pulse Ox O2 Delivery O2 Flow Rate FiO2 10/28/16 09:19 93 Nasal Cannula 3.00 10/28/16 08:00 65 10/28/16 08:00 98.4 65 18 126/60 (82) 94 10/28/16 04:44 65 10/28/16 04:00 90 127/60 (82) 10/28/16 00:00 98.3 64 19 132/58 (82) 94 10/27/16 20:00 98.6 74 19 128/58 (81) 94 10/27/16 16:00 63 10/27/16 16:00 98.4 20 122/56 (78) 96 10/27/16 14:00 63 10/27/16 12:00 67 10/27/16 12:00 98.8 67 22 118/55 (76) 95 I/O 10/27/16 10/27/16 10/27/16 10/28/16 10/28/16 10/28/16 07:00 15:00 23:00 07:00 15:00 23:00 Intake Total 960 ml 640 ml Output Total 1125 ml 400 ml Balance -165 ml 240 ml Intake Oral 960 ml 240 ml Packed Cells 400 ml Output Urine Total 1125 ml 400 ml # Bowel Movements 0 Result Diagram: 10/28/16 0525 10/28/16 0525 Imaging Last Impressions Chest X-Ray 10/26/16 0000 Signed Impressions: Service Date/Time: October 06:41 - CONCLUSION: 1. Stable fullness in the right hilar distribution there is a prominent central pulmonary artery. 2. Minimal atelectatic changes medially in the right base. 3. Compensated cardiomegaly. Lungs are hypoinflated. Bonifacio Melchor MD Renal Ultrasound 10/24/16 0000 Signed Impressions: Service Date/Time: Monday, October 24, 2016 10:28 - CONCLUSION: 1. Negative examination. Jimbo Ochoa MD Catheter Placement X-Ray 10/23/16 0000 Signed Impressions: Service Date/Time: Sunday, October 23, 2016 00:00 - CONCLUSION: Uncomplicated line placement as above. Yuval Villanueva Jr., MD Objective Remarks GENERAL: 71 yo F, obese, appears in nad. CARDIOVASCULAR: Regular rate and rhythm without murmurs, gallops, or rubs. RESPIRATORY: Breath sounds equal bilaterally. No accessory muscle use. GASTROINTESTINAL: Abdomen soft, non-tender, nondistended. MUSCULOSKELETAL: No cyanosis, or edema. BACK: Nontender without obvious deformity. No CVA tenderness. Procedures 10/23-Vascular catheter placement by interventional radiology([place]) Date of Insertion: Oct 23, 2016 Date of Insertion: Oct 23, 2016 Location: Internal, Jugular (vascular catheter) A/P Problem List: (1) Acute renal failure ICD Code: N17.9 - Acute kidney failure, unspecified Status: Acute (2) Hyperkalemia ICD Code: E87.5 - Hyperkalemia Status: Acute (3) Dyspnea ICD Code: R06.00 - Dyspnea, unspecified Status: Acute (4) COPD exacerbation ICD Code: J44.1 - Chronic obstructive pulmonary disease with (acute) exacerbation (5) Chronic respiratory failure ICD Code: J96.10 - Chronic respiratory failure, unspecified whether with hypoxia or hypercapnia (6) Hypertension ICD Code: I10 - Essential (primary) hypertension (7) Anemia of chronic disease ICD Code: D63.8 - Anemia in other chronic diseases classified elsewhere Assessment and Plan Acute renal failure: Likely secondary to hypotension, cardiogenic shock. Cuevas catheter in place to measure accurate output. Appreciate nephrology recommendations. Temporary dialysis catheter placed, but patient has not yet required dialysis. Creatinine improving. Stop IV fluids. No need of HD. Cr improved continue PO hydration. COPD exacerbation, chronic respiratory failure: Patient is on 2 L of oxygen continuously at home. Continue duo nebs, Spiriva. Hypertension: Lisinopril on hold secondary to acute kidney injury. Continue Isordil, carvedilol, Norvasc. Hyperkalemia: Improved. Appreciate nephrology recommendations. Anemia of chronic disease: Monitor H&H. Labs are pending. Continue nystatin. GI prophylaxis: Pepcid. DVT prophylaxis: SCDs, subcutaneous heparin. Discharge Planning Improved, no need of HD per nephro. Discharge home, to resume home health. Has O2 at home. Problem Qualifiers (1) Acute renal failure: Qualified Codes: N17.9 - Acute kidney failure, unspecified (2) Dyspnea: Qualified Codes: R06.00 - Dyspnea, unspecified Jody Lindsay MD Oct 28, 2016 10:36
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
--- NOTE | 2016-10-28 11:03 | HHI.FF ---
Face to Face Verification Diagnosis: (1) CKD (chronic kidney disease) (2) Chronic respiratory failure (3) Hyperkalemia (4) Acute renal failure (5) Anemia of chronic disease (6) Dyspnea (7) Hypertension (8) COPD exacerbation Physical Therapy Order: Evaluate and Treat Home Health Nursing Order: Medical education Signs/symptoms of disease process Medication education-adverse effect Wound care and dressing changes Nursing assessment with vital signs Instructions: resume wound care I have seen patient Irasema Villasenor on 10/28/16. My clinical findings support the need for the requested home health care services because: Ltd mobility - disease progression Patient has SOB Deconditioned w/ increased weakness I certify that my clinical findings support that this patient is homebound because: Post-op weakness Hx COPD- exertion dyspnea/weakness Jody Lindsay MD Oct 28, 2016 11:03
[2016-10-28] MEDS: amLODIPine BESYLATE 5 MG TAB PO SCH (12:10)
== END 2016-10-28 15:38 | disposition home health service (06) | DRG 682 ==
LOC: PHED 09:20 → PHEDA 11:27 → HIMN 21:40 → N07B 10-27 16:04 → HIMN 10-27 16:24 → N07B 10-27 17:11
PROVIDERS: ADMIT Hospitalist; ATTEND Hospitalist
PROC: 03HY32Z Insertion of Monitoring Device into Upper Artery, Percutaneous Approach (ICD-10-PCS; 2016-10-23)
PROC: 05HM33Z Insertion of Infusion Device into Right Internal Jugular Vein, Percutaneous Approach (ICD-10-PCS; 2016-10-23)
PROC: 5A1D00Z (ICD-10-PCS; 2016-10-23)
PROC: 30233N1 Transfusion of Nonautologous Red Blood Cells into Peripheral Vein, Percutaneous Approach (ICD-10-PCS; principal; 2016-10-27)
DX: N17.9 Acute kidney failure, unspecified (principal); L89.153 Pressure ulcer of sacral region, stage 3; R57.0 Cardiogenic shock; G62.81 Critical illness polyneuropathy; I95.9 Hypotension, unspecified; J96.11 Chronic respiratory failure with hypoxia; D69.6 Thrombocytopenia, unspecified; Z99.81 Dependence on supplemental oxygen; J44.1 Chronic obstructive pulmonary disease with (acute) exacerbation; J98.11 Atelectasis; E87.5 Hyperkalemia; E86.0 Dehydration; M19.90 Unspecified osteoarthritis, unspecified site; E66.01 Morbid (severe) obesity due to excess calories; D63.8 Anemia in other chronic diseases classified elsewhere; Z74.01 Bed confinement status; M21.379 Foot drop, unspecified foot; B36.9 Superficial mycosis, unspecified; E78.5 Hyperlipidemia, unspecified; F41.9 Anxiety disorder, unspecified; K59.09 Other constipation; N18.3 Chronic kidney disease, stage 3 (moderate); I44.0 Atrioventricular block, first degree; R73.9 Hyperglycemia, unspecified; I12.9 Hypertensive chronic kidney disease with stage 1 through stage 4 chronic kidney disease, or unspecified chronic kidney disease
CPT/HCPCS: 36430; 36556; 71010; 76775; 76937; 77001; 80048; 80053; 80074; 81001; 82550; 83036; 83605; 83735; 83880; 84100; 84132; 84155; 84165; 84484; 85007; 85014; 85018; 85025; 85027; 85610; 86021; 86038; 86039; 86160; 86850; 86900; 86901; 86920; 87040; 87086; 87641; 93005; 93306; 94640; 94664; 96361; 96374; 96375; C1752; J0610; J1644; J1815; J1940; J2930; J7030; J7040; P9016